=== PATIENT | female | born 1960 ===

== ENCOUNTER 2024-08-25 12:57 | Emergency (ER) | payer OTHER ==
[~2024-08-25] VITALS: Ht 162.6 cm; Wt 59.9 kg
[~2024-08-25 12:57] MED LIST: GLIMEPIRIDE1 MG; LISINOPRIL2.5 MG; METFORMIN HYDRO25 GM
[2024-08-25] MEDS ORDERED: SIMVASTATIN5 MG (13:28)
[2024-08-25] MEDS ORDERED: HORIZANT300 MG (13:29)
[2024-08-25] MEDS ORDERED: ECOTRIN81 MG (13:29)
[2024-08-25] MEDS ORDERED: BASAGLAR K100 UNIT/1 (13:31)
[2024-08-25 16:28] LABS: BASO % 0.5 % (0.1-1.2); EOS # 0.16 (0.04-0.54); EOS % 1.5 % (0.7-7.0); LYMPH # 2.76 (1.18-3.74); LYMPH % 25.5 % (19.3-53.1); MEAN PLATELET VOLUME 10.30 fl (9.4-12.4); MONO # 0.79 (0.24-0.82); MONO % 7.3 % (4.7-12.5); NEUT # 7.03 (1.56-6.13); NEUT % 64.8 % (34.0-71.1); RED CELL DISTRIBUTION WIDTH 13.6 % (11.6-14.4)
[2024-08-25 16:57] LABS: ALT/SGPT 31.0 U/L (12-78); AST/SGOT 28.0 U/L (15-37); BILIRUBIN TOTAL 0.3 mg/dL (0.3-1.2); BUN CREA RATIO 20.0 (7.0-25.0); CREATININE SERUM 0.98 mg/dL (0.55-1.02); GFR 56.96; GLOBULINA 3.9 G/DL (2.4-3.5); GLUCOSE FASTING 115.0 mg/dL (65-100); OSMOLALITY SERUM 290.0 MOSM/KG (275-295)
[2024-08-25] MEDS ORDERED: INTESTINEX680 M1 PO (17:19)
[2024-08-25] MEDS ORDERED: CLEOCIN HCL300 MG PO (17:19)
[2024-08-25] MEDS ORDERED: KETOROLAC TROMETHAMINE 30 MG VIAL IM ONE (17:30)
== END 2024-08-25 17:47 | disposition home or self-care (01) ==
LOC: ER 12:57
PROVIDERS: Preventive Medicine Public Health & General Preventive Medicine
DX: N76.4 Abscess of vulva (principal); Z88.0 Allergy status to penicillin; Z88.2 Allergy status to sulfonamides; I10 Essential (primary) hypertension; I87.2 Venous insufficiency (chronic) (peripheral); E78.49 Other hyperlipidemia; E11.9 Type 2 diabetes mellitus without complications; Z79.4 Long term (current) use of insulin